=== PATIENT | female | born 1985 | race African-American/Black ===

== ENCOUNTER → 2022-01-10 | Outpatient (CLI) | payer OTHER | LOC: MHCPAIN 08:55 | DX: M47.897 Other spondylosis, lumbosacral region (principal); M53.3 Sacrococcygeal disorders, not elsewhere classified; M54.50 Low back pain, unspecified | CPT/HCPCS: G0463 ==

== ENCOUNTER → 2022-03-26 | Outpatient (CLI) | payer OTHER | LOC: MHCPAIN 02-15 11:33 | DX: M47.816 Spondylosis without myelopathy or radiculopathy, lumbar region (principal); M54.50 Low back pain, unspecified; M53.3 Sacrococcygeal disorders, not elsewhere classified; M54.16 Radiculopathy, lumbar region | CPT/HCPCS: G0463; J1100; Q9967 ==